=== PATIENT | male | born 1940 | race Caucasian/White ===

== ENCOUNTER 2023-04-17 03:33 | Emergency (ER) | payer OTHER ==
[~2023-04-17] VITALS: Ht 172.7 cm; Wt 66.4 kg
[2023-04-17] MEDS ORDERED: SODIUM CHLORIDE 0.9% 1,000 ML IV ONE (03:45)
[2023-04-17 04:21] LABS: ANION GAP 13 mmol/L (8-16); CALCIUM, TOTAL 9.2 mg/dL (8.8-10.5); CARBON DIOXIDE 24 mmol/L (22-29); CHLORIDE 103 mmol/L (98-107); CREATININE 1.01 mg/dL (0.60-1.30); GLOMERULAR FILTR. RATE CALC > 60 mL/min (>60); GLUCOSE,RANDOM 153 mg/dL (70-110); POTASSIUM 3.4 mmol/L (3.5-5.1); SODIUM SERUM 140 mmol/L (136-145); UREA NITROGEN, BLOOD 11 mg/dL (7-18)
[2023-04-17 04:21] LABS: COVID AG,FIA SOURCE NASAL SWAB
[2023-04-17 04:26] LABS: ALANINE AMINOTRANSFERASE 12 U/L (12-78); ALBUMIN 3.4 g/dL (3.4-5.0); ALKALINE PHOSPHATASE 59 U/L (46-116); ASPARTATE AMINOTRANSFERASE 15 U/L (15-37); BILIRUBIN,TOTAL 0.8 mg/dL (0.1-1.0); LIPASE 18 U/L (16-77); TOTAL PROTEIN, SERUM 6.8 g/dL (6.4-8.2)
[2023-04-17 04:31] LABS: ALCOHOL, BLOOD (SERUM) < 3 mg/dL (0-10)
[2023-04-17 04:42] LABS: BASOPHILS % (AUTO) 0.2 % (0.0-2.0); EOSINOPHILS % (AUTO) 0.1 % (1.0-6.0); HEMATOCRIT 41.1 % (41-53); HEMOGLOBIN 13.7 g/dL (13.5-17.5); LYMPHOCYTES # (AUTO) 0.2 K/uL (1.0-4.8); LYMPHOCYTES % (AUTO) 3.4 % (22.0-44.0); MEAN CORPUSCULAR HEMOGLOBIN 34.1 pg (26.0-34.0); MEAN CORPUSCULAR HGB CONC 33.3 G/dL (31.0-37.0); MEAN CORPUSCULAR VOLUME 103 fL (80-100); MONOCYTES # (AUTO) 0.1 K/uL (0.1-1.0); MONOCYTES % (AUTO) 0.9 % (2.0-9.0); NEUTROPHILS # (AUTO) 5.5 K/uL (1.8-7.7); PLATELET COUNT (AUTO) 140 K/uL (150-450); RED BLOOD CELL COUNT(AUTO) 4.01 MIL/uL (4.50-5.90); RED CELL DISTRIBUTION WIDTH 14.3 % (11.5-14.5); WHITE BLOOD COUNT (AUTO) 5.8 K/uL (4.5-11.0)
[2023-04-17 04:44] LABS: SARS-COV2 (COVID) ANTIGEN,FIA Positive (Negative)
[2023-04-17] MEDS ORDERED: ACETAMINOPHEN 650 MG RECTAL SUPPOSITORY PR ONE (04:45)
[2023-04-17] MEDS ORDERED: SODIUM CHLORIDE 0.9% 2,050 ML IV ONE (04:45)
[2023-04-17] MEDS ORDERED: CefTRIAXone 1 GM/DEXTROSE 50 ML IV ONE (04:45)
[2023-04-17 04:46] LABS: NEUTROPHILS % (AUTO) 95.4 % (40.0-70.0); TROPONIN I-HIGH SENSITIVITY 15 ng/L (<76)
[2023-04-17 04:48] LABS: APPEARANCE,URINE CLEAR (CLEAR); BILIRUBIN,URINE NEGATIVE (NEGATIVE); COLOR,URINE LIGHT YELLOW (YELLOW); GLUCOSE, URINE (UA) NEGATIVE (NEGATIVE); KETONES,URINE NEGATIVE (NEGATIVE); LEUKOCYTE ESTERASE ,URINE SMALL (NEGATIVE); NITRATE,URINE NEGATIVE (NEGATIVE); OCCULT BLOOD,URINE MODERATE (NEGATIVE); PH,URINE 6.5 (5.0-8.0); PROTEIN,URINE NEGATIVE (NEGATIVE); SPECIFIC GRAVITIY, URINE 1.011 (1.003-1.030); UROBILINOGEN,URINE <=1.0 mg/dL (<=1.0)
[2023-04-17 04:48] LABS: LACTIC ACID 2.7 mmol/L (0.4-2.0)
[2023-04-17] MEDS ORDERED: MAGNESIUM SULFATE 2 GM, MVI, ADULT NO.1 WITH VIT K 10 ML, THIAMINE 100 MG, FOLIC ACID 1... IV ONE ×5 (05:00)
[2023-04-17 05:04] LABS: INR 1.1 (0.9-1.1)
[2023-04-17 05:35] LABS: RBC MORPHOLOGY COMMENT ABNORMAL RBC MORPH
[2023-04-17 05:50] LABS: BACTERIA,URINE Few /HPF (None Seen); RBC,URINE 0-2 /HPF (0-2); SQUAMOUS EPITHELIAL CELL,UR Few /LPF (None Seen)
[2023-04-17] MEDS ORDERED: POTASSIUM CHLORIDE 10% 40 MEQ/30 ML LIQUID UDCUP PO ONE (06:00)
[2023-04-17 07:15] VITALS: BP 119/68; PULSE 88; RESP 16; TEMP 101.3
== END 2023-04-17 09:20 | disposition short-term general hospital (02) ==
LOC: EMS 03:34
DX: A41.9 Sepsis, unspecified organism (principal); U07.1 COVID-19; R33.9 Retention of urine, unspecified; R41.82 Altered mental status, unspecified; F10.20 Alcohol dependence, uncomplicated; Y90.9 Presence of alcohol in blood, level not specified
CPT/HCPCS: 99291; 96365; 70450; 71045; 96367; 96361; 87426; 80053; 82140; 83605; 83690; 84484; 85025; 85610; 87040; 93005; 96368; 84145; 81001; 36415; G0480; J0696; J3490 ×2; J3411; J3475; J7030

== ENCOUNTER 2024-06-05 09:47 | Inpatient (IN) | payer MEDICARE, MEDICAID ==
[~2024-06-05] VITALS: Ht 175.3 cm; Wt 70.5 kg
[2024-06-05] MEDS ORDERED: AMLO2.5T96 PO (09:58)
[2024-06-05] MEDS ORDERED: MIRT-89 PO (09:58)
[2024-06-05] MEDS ORDERED: DONE-52 PO (09:58)
[2024-06-05] MEDS ORDERED: DABI150C2 PO (09:58)
[2024-06-05] MEDS ORDERED: DIVA125T32 PO (09:58)
[2024-06-05] MEDS ORDERED: SULF-261 PO (09:58)
[2024-06-05] MEDS ORDERED: LISI-894 PO (09:58)
[2024-06-05] MEDS ORDERED: TAMS0.4C94 PO (09:58)
[2024-06-05 11:03] LABS: BASOPHILS % (AUTO) 0.4 % (0.0-2.0); EOSINOPHILS % (AUTO) 0.7 % (1.0-6.0); HEMATOCRIT 44.9 % (41-53); HEMOGLOBIN 14.8 g/dL (13.5-17.5); LYMPHOCYTES # (AUTO) 1.1 K/uL (1.0-4.8); LYMPHOCYTES % (AUTO) 15.6 % (22.0-44.0); MEAN CORPUSCULAR HEMOGLOBIN 32.4 pg (26.0-34.0); MEAN CORPUSCULAR HGB CONC 32.9 G/dL (31.0-37.0); MEAN CORPUSCULAR VOLUME 99 fL (80-100); MONOCYTES # (AUTO) 0.6 K/uL (0.1-1.0); MONOCYTES % (AUTO) 8.8 % (2.0-9.0); NEUTROPHILS # (AUTO) 5.1 K/uL (1.8-7.7); NEUTROPHILS % (AUTO) 74.5 % (40.0-70.0); PLATELET COUNT (AUTO) 147 K/uL (150-450); RED BLOOD CELL COUNT(AUTO) 4.56 MIL/uL (4.50-5.90); RED CELL DISTRIBUTION WIDTH 14.7 % (11.5-14.5); WHITE BLOOD COUNT (AUTO) 6.8 K/uL (4.5-11.0)
[2024-06-05 11:14] LABS: ANION GAP 5 mmol/L (8-16); CALCIUM, TOTAL 8.7 mg/dL (8.8-10.5); CARBON DIOXIDE 33 mmol/L (22-29); CHLORIDE 106 mmol/L (98-107); GLOMERULAR FILTR. RATE CALC > 60 mL/min (>60); GLUCOSE,RANDOM 112 mg/dL (70-110); POTASSIUM 4.1 mmol/L (3.5-5.1); SODIUM SERUM 144 mmol/L (136-145); UREA NITROGEN, BLOOD 8 mg/dL (7-18)
[2024-06-05 12:16] LABS: APPEARANCE,URINE HAZY (CLEAR); BILIRUBIN,URINE NEGATIVE (NEGATIVE); COLOR,URINE LIGHT YELLOW (YELLOW); GLUCOSE, URINE (UA) NEGATIVE (NEGATIVE); KETONES,URINE NEGATIVE (NEGATIVE); LEUKOCYTE ESTERASE ,URINE LARGE (NEGATIVE); NITRATE,URINE NEGATIVE (NEGATIVE); OCCULT BLOOD,URINE TRACE (NEGATIVE); PROTEIN,URINE NEGATIVE (NEGATIVE); SPECIFIC GRAVITIY, URINE 1.009 (1.003-1.030); UROBILINOGEN,URINE <=1.0 mg/dL (<=1.0)
[2024-06-05 12:33] LABS: BACTERIA,URINE Moderate /HPF (None Seen); RBC,URINE 0-2 /HPF (0-2)
[2024-06-05] MEDS: CefTRIAXone 1 GM/DEXTROSE 50 ML IV ONE (13:23)
[2024-06-05] MEDS: HEPARIN SODIUM,PORCINE 5,000 UNITS/ML VIAL SQ SCH (15:06)
[2024-06-05 20:15] VITALS: BP 146/82; PULSE 54; RESP 20; TEMP 97.4; O2SAT 97
[2024-06-05] MEDS: DOCUSATE SODIUM 100 MG CAPSULE PO SCH (21:00)
[2024-06-06 05:32] VITALS: BP 112/81; PULSE 62; RESP 18; TEMP 99.3; O2SAT 96
[2024-06-06 07:58] VITALS: BP 116/63; PULSE 56; RESP 18; TEMP 99.1; O2SAT 96
[2024-06-06] MEDS: FAMOTIDINE 20 MG TABLET PO SCH (08:14)
[2024-06-06 12:00] VITALS: BP 133/82; PULSE 66; RESP 18; TEMP 98.9; O2SAT 96
[2024-06-06] MEDS: CefTRIAXone 1 GM/DEXTROSE 50 ML IV SCH (16:22)
[2024-06-06] MEDS ORDERED: SODIUM CHLORIDE 0.9% 500 ML IV ONE (16:30)
[2024-06-06 19:36] VITALS: BP 109/60; PULSE 56; RESP 18; TEMP 98.1; O2SAT 96
[2024-06-07 05:21] VITALS: BP 103/68; PULSE 58; RESP 18; TEMP 97.8; O2SAT 97
[2024-06-07 07:31] VITALS: BP 110/62; PULSE 62; RESP 18; TEMP 98; O2SAT 98
[2024-06-07 16:23] VITALS: BP 108/60; PULSE 58; RESP 18; TEMP 98; O2SAT 97
[2024-06-07 21:02] VITALS: BP 148/79; PULSE 74; RESP 18; TEMP 98.3; O2SAT 95
[2024-06-08] MEDS: MELATONIN 3 MG TABLET PO ONE (01:08)
[2024-06-08 06:03] VITALS: BP 137/72; PULSE 70; RESP 19; TEMP 97.6; O2SAT 96
[2024-06-08 08:50] VITALS: BP 127/66; PULSE 47; RESP 18; TEMP 97.8; O2SAT 96
[2024-06-08 08:57] VITALS: PULSE 52
[2024-06-08 15:59] VITALS: BP 149/79; PULSE 53; RESP 18; TEMP 98.1; O2SAT 97
[2024-06-08 20:34] VITALS: BP 146/87; PULSE 51; RESP 18; TEMP 98; O2SAT 99
[2024-06-09 08:27] VITALS: BP 138/74; PULSE 70; RESP 18; TEMP 98; O2SAT 99
[2024-06-09] MEDS: *CLINICAL-CEFEPIME DOSING CLINICAL ONE (10:37)
[2024-06-09] MEDS: CEFEPIME HCL 2 GM in DEXTROSE 5%-WATER 50 ML IV SCH (12:18)
[2024-06-09] MEDS: LORazepam 2 MG/ML VIAL IVP ONE (15:11)
[2024-06-09 16:02] VITALS: BP 116/66; PULSE 78; RESP 18; TEMP 98; O2SAT 96
[2024-06-09 19:50] VITALS: BP 131/67; PULSE 80; RESP 20; TEMP 98.2; O2SAT 97
[2024-06-10] VITALS (7 sets, daily range): BP systolic 129–195; BP diastolic 58–96; PULSE 48–62; RESP 18; TEMP 97.8–98.2; O2SAT 95–99
[2024-06-10 12:11] LABS: BASOPHILS % (AUTO) 0.6 % (0.0-2.0); EOSINOPHILS % (AUTO) 0.9 % (1.0-6.0); HEMOGLOBIN 14.1 g/dL (13.5-17.5); LYMPHOCYTES # (AUTO) 1.3 K/uL (1.0-4.8); LYMPHOCYTES % (AUTO) 24.8 % (22.0-44.0); MEAN CORPUSCULAR HEMOGLOBIN 32.3 pg (26.0-34.0); MEAN CORPUSCULAR HGB CONC 32.8 G/dL (31.0-37.0); MEAN CORPUSCULAR VOLUME 98 fL (80-100); MONOCYTES # (AUTO) 0.7 K/uL (0.1-1.0); MONOCYTES % (AUTO) 12.7 % (2.0-9.0); NEUTROPHILS # (AUTO) 3.3 K/uL (1.8-7.7); PLATELET COUNT (AUTO) 151 K/uL (150-450); RED BLOOD CELL COUNT(AUTO) 4.37 MIL/uL (4.50-5.90); RED CELL DISTRIBUTION WIDTH 14.7 % (11.5-14.5); WHITE BLOOD COUNT (AUTO) 5.4 K/uL (4.5-11.0)
[2024-06-10 12:24] LABS: ANION GAP 7 mmol/L (8-16); CALCIUM, TOTAL 8.7 mg/dL (8.8-10.5); CARBON DIOXIDE 28 mmol/L (22-29); CHLORIDE 106 mmol/L (98-107); CREATININE 0.68 mg/dL (0.60-1.30); GLOMERULAR FILTR. RATE CALC > 60 mL/min (>60); GLUCOSE,RANDOM 111 mg/dL (70-110); POTASSIUM 4.1 mmol/L (3.5-5.1); SODIUM SERUM 141 mmol/L (136-145); UREA NITROGEN, BLOOD 15 mg/dL (7-18)
[2024-06-10] MEDS: AmLODIPine BESYLATE 5 MG TABLET PO ONE (21:58)
[2024-06-10] MEDS: ACETAMINOPHEN 325 MG TABLET PO PRN (23:19)
[2024-06-11] MEDS ORDERED: SODIUM CHLORIDE 0.9% 250 ML IV ONE (00:14)
[2024-06-11 05:30] VITALS: BP 148/94; PULSE 48; RESP 18; TEMP 97.5; O2SAT 100
[2024-06-11 07:39] VITALS: BP 139/89; PULSE 49; RESP 20; TEMP 97.8; O2SAT 97
[2024-06-11 15:01] VITALS: BP 149/96; PULSE 51; RESP 18; TEMP 97.9; O2SAT 95
[2024-06-11 19:47] VITALS: BP 144/70; PULSE 54; RESP 16; TEMP 98; O2SAT 95
[2024-06-11] MEDS: AmLODIPine BESYLATE 5 MG TABLET PO SCH (19:51)
[2024-06-12 04:58] VITALS: BP 116/67; PULSE 51; RESP 18; TEMP 98.4; O2SAT 98
[2024-06-12 08:00] VITALS: BP 112/71; PULSE 49; RESP 20; TEMP 97.7; O2SAT 98
[2024-06-12] MEDS: QUEtiapine FUMARATE 25 MG TABLET PO SCH (11:27)
[2024-06-12 15:14] VITALS: BP 120/68; PULSE 55; RESP 18; TEMP 97.8; O2SAT 98
[2024-06-12 20:22] VITALS: BP 142/65; PULSE 55; RESP 18; TEMP 98.2; O2SAT 97
[2024-06-13 04:25] VITALS: BP 148/86; PULSE 54; RESP 18; TEMP 97.5; O2SAT 96
[2024-06-13 09:08] VITALS: BP 125/78; PULSE 51; RESP 18; TEMP 98; O2SAT 96
[2024-06-13 16:13] VITALS: BP 138/84; PULSE 50; RESP 18; TEMP 98; O2SAT 95
[2024-06-13 20:00] VITALS: BP 134/78; PULSE 57; RESP 18; TEMP 98.4; O2SAT 96
[2024-06-14 09:20] VITALS: BP 125/80; PULSE 65; RESP 18; TEMP 98.2; O2SAT 93
[2024-06-14] MEDS ORDERED: SODIUM CHLORIDE 0.9% 250 ML IV ONE (13:40)
[2024-06-14] MEDS ORDERED: CEFE2VIA IV (15:15)
[2024-06-14] MEDS ORDERED: AMLO-257 PO (15:15)
[2024-06-14] MEDS ORDERED: DOCU-385 PO (15:16)
[2024-06-14] MEDS ORDERED: FAMO20 PO (15:17)
[2024-06-14] MEDS ORDERED: HEPA500018 SQ (15:17)
[2024-06-14] MEDS ORDERED: ACET-2247 PO (15:18)
[2024-06-14] MEDS ORDERED: QUET25TA PO (15:18)
== END 2024-06-14 18:20 | DRG 690 ==
LOC: EMS 09:48 → EDH 13:34 → UNDOADMIN 13:48 → 6N 20:05 → 6S 06-07 19:11
PROVIDERS: ADMIT Internal Medicine; ATTEND Internal Medicine
DX: N39.0 Urinary tract infection, site not specified (principal); F03.C11 Unspecified dementia, severe, with agitation; N40.0 Benign prostatic hyperplasia without lower urinary tract symptoms; I10 Essential (primary) hypertension; E78.00 Pure hypercholesterolemia, unspecified; R62.7 Adult failure to thrive; Z79.899 Other long term (current) drug therapy; Z68.22 Body mass index [BMI] 22.0-22.9, adult
CPT/HCPCS: 71045; 80048; 81001; 85025; 87077; 87086; 87186; 93005; 96365; 96367; 96372; 97162; 99285; G0378; J0692; J0696; J1644; J2060; J7040; J7050; J7060; 36415-L1; 36415-TC